=== PATIENT | female | born 1970 | race Caucasian/White ===

== ENCOUNTER → 2017-09-27 | Outpatient (CLI) | payer BC ==
--- NOTE | 2017-09-30 18:10 | Diagnostic Imaging Report ---
#[id number] - MGSCRBIL #BILATERAL DIGITAL SCREENING MAMMOGRAM WITH CAD: 09/27/2017 Comparison is made to exam dated: 09/09/2016 mammogram - [facility]. Current study contains 4 films. The tissue of both breasts is heterogeneously dense. This may lower the sensitivity of mammography. Current study was also evaluated with a Computer Aided Detection (CAD) system. There is a heterogeneous calcification in the left breast at 9 o'clock anterior depth. A benign calcification in the right breast is stable. No other significant masses, calcifications, or other findings are seen in either breast. IMPRESSION: INCOMPLETE: NEEDS ADDITIONAL IMAGING EVALUATION The heterogeneous calcification in the left breast is indeterminate. Spot magnification views are recommended. The patient will be contacted by the Mammography Department to schedule this appointment. See Miranda Jr., D.O. cw/:09/30/2017 08:44:26 Local Combination Truck Driver: Ericka STOCKTON(Jose J)(Daniel), [facility] letter sent: Additional Imaging Needed Mammogram BI-RADS: 0 Indeterminate
== END ==
LOC: MAMMO 08:55
PROVIDERS: ATTEND Obstetrics & Gynecology
DX: Z12.31 Encounter for screening mammogram for malignant neoplasm of breast (principal)
CPT/HCPCS: 77067

== ENCOUNTER → 2017-10-13 | Outpatient (CLI) | payer BC ==
--- NOTE | 2017-10-13 16:08 | Diagnostic Imaging Report ---
#[id number] - MGDXLT #UNILATERAL LEFT DIGITAL DIAGNOSTIC MAMMOGRAM WITH MAGNIFICATION: 10/13/2017 Comparison is made to exams dated: 09/27/2017 mammogram and 09/09/2016 mammogram - [facility]. Current study contains 3 films. The tissue of the left breast is heterogeneously dense. This may lower the sensitivity of mammography. There is an amorphous calcification in the left breast at 6 o'clock anterior depth that are indeterminate but possibly benign. In comparison to the 2017 these might have been faintly present previously. No other significant masses or calcifications are seen in the breast. IMPRESSION: PROBABLY BENIGN The amorphous calcification in the left breast is probably benign. A follow-up mammogram in 6 months is recommended to demonstrate stability. The patient was notified of the need for followup as well as the possibility that a biopsy might be required if the calcifications have changed or increased in the interval followup time frame. See Miranda Jr., D.O. cw/:10/13/2017 15:19:10 [employer] As[employer]er: Ericka CARRIZALES)(Daniel), [facility] letter sent: Followup Recommended Mammogram BI-RADS: 3 Probably benign
== END ==
LOC: MAMMO 13:21
PROVIDERS: ATTEND Obstetrics & Gynecology
DX: N64.59 Other signs and symptoms in breast (principal)

== ENCOUNTER → 2018-11-10 | Outpatient (CLI) | payer BC | LOC: MAMMO 08:55 | PROVIDERS: ATTEND Obstetrics & Gynecology | DX: R92.1 Mammographic calcification found on diagnostic imaging of breast (principal) | CPT/HCPCS: 77066 ==

== ENCOUNTER 2019-06-25 12:04 | Emergency (ER) | payer BC ==
[~2019-06-25] VITALS: Ht 160 cm; Wt 70.3 kg
[2019-06-25] MEDS ORDERED: IOPAMIDOL 370 MG/ML 50ML INFUS..BTL INJ ONE (12:05)
[2019-06-25] MEDS ORDERED: SODIUM CHLORIDE 0.9% INJ 50 ML BAG IV ONE (12:05)
--- OUTSIDE RECORDS SUMMARY | 2019-06-25 12:06 | XMS REPORT ---
Author [facility] Address Unknown Phone Unavailable Care Team Providers Care Literary Agent Name Role Phone Malick ORANTES Unavailable Unavailable Problems This patient has no known problems. Allergies, Adverse Reactions, Alerts This patient has no known allergies or adverse reactions. Medications This patient has no known medications. Results Test Description Test Time Test Comments Text Results Atomic Results Result Comments MAMMOGRAPHY DIGITAL DX BILAT 2018-11-10 09:46:00 [place] [address] Patient Name: LAQUITA REYEZ MR #: [id number] : 1970 Age/Sex: 48/F Req #: [id number] [facility] Physician: Ordered by: MARK ORANTES Report #: [id number] Location: MAMMO Room/Bed: Procedure: [id number] MG/MAMMOGRAPHY DIGITAL DX BILAT Exam Date: 11/10/18 Exam Time: 0908 REPORT STATUS: Signed #[id number] - MGDXBIL #BILATERAL DIGITAL DI AGNOSTIC MAMMOGRAM WITH CAD SHORT-TERM FOLLOW-UP: 11/10/2018 Comparison is made to exams dated: 03/28/2018 mammogram, 10/13/2017 mammogram, 09/27/2017 mammogram and 09/09/2016 mammogram - [facility]. Current study contains 8 films. The tissue of both breasts is heterogeneously dense. This may lower the sensitivity of mammography. Current study was also evaluated with a Computer Aided Detection (CAD) system. The group of calcifications in the left breast appear stable. No mass or abnormal calcifications are seen in the right breast. IMPRESSION: PROBABLY BENIGN A follow-up left breast mammogram in 6 months is recommended to demonstrate stability. The patient was notified of these results. Antonio Miranda Jr., D.O. cw/:11/10/2018 14:31:03 Research Engineer [employer]: Ericka STOCKTON(R)(M), [facility] letter sent: Followup Recommended Mammogram BI-RADS: 3 Probably benign Dictated By: ANTONIO MIRANDA DO 143 Transcribed By: JOVANI on 11/10/18 143 COPY TO: MARK ORANTES MAMMOGRAPHY DIGITAL DX UNI LT 2018-03-28 14:40:00 [place] [address] Patient Name: LAQUITA REYEZ MR #: [id number] : 1970 Age/Sex: 47/F Req #: [id number] [facility] Physician: Ordered by: MARK ORANTES Report #: [id number] Location: MAMMO Room/Bed: Procedure: [id number] MG/MAMMOGRAPHY DIGITAL DX UNI LT Exam Date: 03/28/18 Exam Time: 1400 REPORT STATUS: Signed #[id number] - MGDXLT #UNILATERAL LEFT DIGITAL DIAGNOSTIC MAMMOGRAM WITH CAD: 03/28/2018 CLINICAL: Follow-up left breast calcifications. Comparison is made to exams dated: 10/13/2017 mammogram and 09/27/2017 mammogram - [facility]. The tissue of the left breast is heterogeneously dense. This may lower the sensitivity of mammography. Current study was also evaluated with a Computer Aided Detection (CAD) system. No new significant masses, calcifications, or other findings are seen in the breast. A 3 mm group of amorphous calcifications in the left breast at 6 o'clock anterior depth is stable. IMPRESSION: PROBABLY BENIGN Stable probably benign calcifications in the elft breast. A follow-up left mammogram in 6 months is recommended to demonstrate stability. The patient will be due for right breast mammogram at that time. The patient has been notified of the results. Yasir Ross M.D. ks/:03/28/2018 15:19:05 Research Engineer [employer] Equipment: Ericka CARRIZALES)(Daniel), [facility] letter sent: Followup Recommended Mammogram BI-RADS: 3 Probably benign Dictated By: YASIR ROSS MD Electronically S igned By: YASIR ROSS MD on 03/28/181518 Transcribed By: JOVANI on 03/28/181518 COPY TO: MARK ORANTES MAMMOGRAPHY DIGITAL DX UNI LT [place] [address] Patient Name: LAQUITA REYEZ MR #: [id number] : 1970 Age/Sex: 47/F Req #: [id number] Adm Physician: Ordered by: MARK ORANTES Report #: [id number] Location: MAMMO Room/Bed: Procedure: [id number] MG/MAMMOGRAPHY DIGITAL DX UNI LT Exam Date: 10/13/17 Exam Time: 1400 REPORT STATUS: Signed #[id number] - MGDXLT #UNILATERAL LEFT DIGITAL DIAGNOSTIC MAMMOGRAM WITH MAGNIFICATION: 10/13/2017 Comparison is made to exams dated: 09/27/2017 mammogram and 09/09/2016 mammogram - [facility]. Current study contains 3 films. The tissue of the left breast is heterogeneously dense. This may lower the sensitivity of mammography. There is an amorphous calcification in the left breast at 6 o'clock anterior depth that are indeterminate but possibly benign. In comparison to the 2017 these might have been faintly present previously. No other significant masses or calcifications are seen in the breast. IMPRESSION: PROBABLY BENIGN The amorphous calcification in the left breast is probably benign. A follow-up mammogram in 6 months is recommended to demonstrate stability. The patient was notified of the need for followup as well as the possibility that a biopsy might be required if the calcifications have changed or increased in the interval followup time frame. Antonio Miranda Jr., D.O. cw/:10/13/2017 15:19:10 Research Engineer Marine [employer]: Ericka STOCKTON(Jose J)(Daniel), [facility] letter sent: Followup Recommended Mammogram BI-RADS: 3 Probably benign Dictated By: ANTONIO MIRANDA DO 1519 Transcribed By: JOVANI on 10/13/17 1519 COPY TO: MARK ORANTES MAMMOGRAPHY DIGITAL SCR [place] [address] Patient Name: LAQUITA REYEZ MR #: [id number] : 1970 Age/Sex: 46/F Req #: [id number] Adm Physician: Ordered by: MARK ORANTES Report #: [id number] Location: MAMMO Room/Bed: Procedure: [id number] MG/MAMMOGRAPHY DIGITAL SCR BILAT Exam Date: 09/27/17 Exam Time: 0909 REPORT STATUS: Signed #[id number] - MGSCRBIL #BILATERAL DIGITAL SCREENING MAMMOGRAM WITH CAD: 09/27/2017 Comparison is made to exam dated: 09/09/2016 mammogram - [facility]. Current study contains 4 films. The tissue of both breasts is heterogeneously dense. This may lower the sensitivity of mammography. Current study was also evaluated with a Computer Aided Detection (CAD) system. There is a heterogeneous calcification in the left breast at 9 o'clock anterior depth. A benign calcification in the right breast is stable. No other significant masses, calcifications, or other findings are seen in either breast. IMPRESSION: INCOMPLETE: NEEDS ADDITIONAL IMAGING EVALUATION The heterogeneous calcification in the left breast is indeterminate. Spot magnification views are recommended. The patient will be contacted by the Mammography Department to schedule this appointment. Antonio Miranda Jr., D.O. cw/:09/30/2017 08:44:26 Research Engineer [employer] Equipment: Ericka STOCKTON(R)(M), [facility] letter sent: Additional Imaging Needed Mammogram BI-RADS: 0 Indeterminate Dictated By: ANTONIO MIRANDA DO Transcribed By: JOVANI on 09/30/17843 COPY TO: MARK ORANTES
[2019-06-25] MEDS ORDERED: SODIUM CHLORIDE 0.9% 1000ML 1,000 ML IV SCH (12:45)
[2019-06-25] MEDS ORDERED: MORPHINE SULFATE INJ 4 MG/ML INJ 1ML IV PRN (12:45)
[2019-06-25] MEDS ORDERED: ONDANSETRON HCL INJ 2MG/ML 2ML 2 MG/ML VIAL ONE (12:52)
[2019-06-25] MEDS ORDERED: ONDANSETRON HCL INJ 2MG/ML 2ML 2 MG/ML VIAL IV STA (12:53)
[2019-06-25] MEDS ORDERED: METOCLOPRAMIDE HCL 10 MG/2ML VIAL ONE (13:50)
[2019-06-25] MEDS ORDERED: METOCLOPRAMIDE HCL 10 MG/2ML VIAL IV ONE (14:30)
--- NOTE | 2019-06-25 14:57 | Diagnostic Imaging Report ---
TECHNIQUE: CT of the abdomen and pelvis WITH intravenous contrast and WITHOUT oral contrast. Dose modulation, iterative reconstruction, and/or weight-based adjustment of the mA/kV was utilized to reduce the radiation dose to as low as reasonably achievable. INDICATION: ^[id number] ^1330. COMPARISON: None. FINDINGS: LOWER THORAX: Unremarkable. HEPATOBILIARY: No focal hepatic lesions. Gallbladder is unremarkable. No biliary ductal dilatation. SPLEEN: No splenomegaly. PANCREAS: No focal masses or ductal dilatation. ADRENALS: No adrenal nodules. KIDNEYS/URETERS: No hydronephrosis, stones, or masses. PELVIC ORGANS/BLADDER: Prior hysterectomy. The ovaries are mildly prominent but symmetric. A left anterior ovary minimally peripherally enhancing structure measures 1.7 cm and may be a corpus luteum. PERITONEUM/RETROPERITONEUM: No free air or fluid. LYMPH NODES: No lymphadenopathy. VESSELS: Unremarkable. GI TRACT: No distention or wall thickening. Prior gastric sleeve. BONES AND SOFT TISSUES: Unremarkable. IMPRESSION: 1. No examination for the left-sided abdominal pain on the CT. 2. The ovaries are prominent but fairly symmetric. A left ovarian minimally peripherally enhancing structure measures 1.7 cm and may be a corpus luteum. This is almost certainly benign, and no follow-up imaging is recommended. Signed by: Tolu Botello JR, MD on 06/25/2019 2:54 PM
[2019-06-25 15:02] VITALS: BP 152/74
== END 2019-06-25 15:11 | disposition home or self-care (01) ==
LOC: FSED 12:04
DX: R10.32 Left lower quadrant pain (principal); R11.0 Nausea; N83.202 Unspecified ovarian cyst, left side
CPT/HCPCS: 74177; 80048; 80076; 81003; 85025; 99284; J2270; J2405; J2765; J7030; Q9967